=== PATIENT | female | born 1940 | race Caucasian/White ===

== ENCOUNTER 2020-05-09 11:42 | Inpatient (IN) | payer MEDICARE ==
[~2020-05-09] VITALS: Ht 162.6 cm; Wt 80.7 kg
[~2020-05-09 11:42] MED LIST: ALLO300T PO; AMLO2.5T5 PO; FURO20TA3 PO; HYDR-826 PO; LEVO100T PO; METO100T5 PO; PRED-402 PO; SPIR25TA5 PO
[2020-05-09] MEDS ORDERED: MORPHINE SULFATE 4 MG/ML, 1ML IVPush PRN (12:30)
[2020-05-09] MEDS ORDERED: ONDANSETRON 2MG/ML, 2ML IVPush ONE (12:30)
[2020-05-09] MEDS ORDERED: ONDANSETRON 2MG/ML, 2ML ONE (12:42)
[2020-05-09] MEDS ORDERED: MORPHINE SULFATE 4 MG/ML, 1ML ONE (12:43)
[2020-05-09 12:54] LABS: MICROSCOPIC INDICATED
[2020-05-09 12:59] LABS: INTERNATIONAL NORMALIZED RATIO 1.32 (0.93-1.1)
[2020-05-09 13:00] LABS: ALANINE AMINOTRANSFERASE 8 U/L (12-78); ALBUMIN 2.3 g/dL (3.4-5.0); ANION GAP 8 mmol/L (5-15); BASOPHILS % (AUTO) 1 % (0-1); CALCIUM 7.7 mg/dL (8.5-10.1); CHLORIDE 107 mmol/L (98-107); CREATININE 1.63 mg/dL (0.55-1.02); EOSINOPHILS % (AUTO) 2 % (1-7); LYMPHOCYTES % (AUTO) 15 % (22-44); MEAN CORPUSCULAR HEMOGLOBIN 32.7 pg (27.0-34.8); MEAN CORPUSCULAR HGB CONC 33.3 g/dL (32.4-35.8); MEAN PLATELET VOLUME 6.8 fL (7.4-10.4); MONOCYTES % (AUTO) 9 % (2-9); NEUTROPHILS % (AUTO) 73 % (42-75); PLATELET COUNT 188 x10^3/uL (130-400); RED CELL DISTRIBUTION WIDTH 16.7 % (9.6-15.2)
[2020-05-09 13:02] LABS: ALKALINE PHOSPHATASE 72 U/L (45-117); TOTAL PROTEIN 6.7 g/dL (6.4-8.2)
[2020-05-09 13:05] LABS: MD NO
[2020-05-09] MEDS ORDERED: CEFTRIAXONE PMX 1GM/50ML 50 ML ONE (13:25)
[2020-05-09] MEDS ORDERED: FUROSEMIDE 40 MG/4 ML IV ONE (13:30)
[2020-05-09] MEDS ORDERED: LIDOCAINE 1%, 10ML ONE (13:37)
[2020-05-09] MEDS ORDERED: POTASSIUM CHLORIDE 40 MEQ in SODIUM CHLORIDE 0.9% 500 ML IV ONE (14:00)
[2020-05-09] MEDS ORDERED: CEFTRIAXONE PMX 1GM/50ML 50 ML IV ONE ×2 (14:00→15:00)
[2020-05-09] MEDS ORDERED: FUROSEMIDE 40 MG/4 ML ONE (14:57)
[2020-05-09 15:32] VITALS: BP 108/71
[2020-05-09 16:04] VITALS: BP 108/71
[2020-05-09] MEDS ORDERED: DOCUSATE 100 MG CAPSULE PO PRN (16:30)
[2020-05-09] MEDS ORDERED: OXYcodone IR 5MG TABLET PO PRN (16:30)
[2020-05-09] MEDS ORDERED: ONDANSETRON 2MG/ML, 2ML IVPush PRN (16:30)
[2020-05-09] MEDS ORDERED: PROMETHAZINE 25 MG/ML, 1ML IM PRN (16:30)
[2020-05-09] MEDS ORDERED: ONDANSETRON ODT 4 MG PO PRN (16:30)
[2020-05-09] MEDS ORDERED: BISACODYL 10 MG SUPP PR PRN (16:30)
[2020-05-09] MEDS ORDERED: POLYETHYLENE GLYCOL 17 GM PACKET PO PRN (16:30)
[2020-05-09] MEDS ORDERED: LABETALOL 5MG/ML, 20ML IVPush PRN (16:30)
[2020-05-09] MEDS: ALBUMIN HUMAN 25% 100 ML IV SCH ×2 (17:12→22:20)
[2020-05-09] MEDS: HEPARIN 5,000 UNITS/ML, 1ML SQ SCH (17:12)
[2020-05-09 19:47] VITALS: BP 137/81
[2020-05-09 19:54] LABS: FREE T4 (FREE THYROXINE) 0.38 ng/dL (0.76-1.46)
[2020-05-10] MEDS: HEPARIN 5,000 UNITS/ML, 1ML SQ SCH (01:09)
[2020-05-10 02:42] VITALS: BP 143/80
[2020-05-10] MEDS: ALBUMIN HUMAN 25% 100 ML IV SCH ×4 (04:18→22:57)
[2020-05-10 04:49] LABS: BASOPHILS % (AUTO) 1 % (0-1); EOSINOPHILS % (AUTO) 2 % (1-7); LYMPHOCYTES % (AUTO) 21 % (22-44); MEAN CORPUSCULAR HEMOGLOBIN 33.4 pg (27.0-34.8); MEAN CORPUSCULAR HGB CONC 34.1 g/dL (32.4-35.8); MEAN PLATELET VOLUME 6.7 fL (7.4-10.4); MONOCYTES % (AUTO) 9 % (2-9); NEUTROPHILS % (AUTO) 68 % (42-75); PLATELET COUNT 89 x10^3/uL (130-400); RED BLOOD COUNT 2.98 x10^6/uL (3.82-5.3)
[2020-05-10 05:03] LABS: ALBUMIN 2.5 g/dL (3.4-5.0); ANION GAP 5 mmol/L (5-15); CALCIUM 7.4 mg/dL (8.5-10.1); CHLORIDE 110 mmol/L (98-107); CHOLESTEROL, TOTAL 64 mg/dL (140-239)
[2020-05-10 05:05] LABS: ALKALINE PHOSPHATASE 44 U/L (45-117); BILIRUBIN,TOTAL 0.8 mg/dL (0.2-1.0); HDL CHOLESTEROL (DIRECT) 24 mg/dL (40-60); TOTAL PROTEIN 5.2 g/dL (6.4-8.2); TRIGLYCERIDES 45 mg/dL (50-200); VLDL CHOLESTEROL 9 mg/dL (0-25)
[2020-05-10 05:06] LABS: CHOL/HDL RATIO 2.7; HDL CHOL % 38 % (28-40); LDL CHOLESTEROL,CALCULATED 31 mg/dL (54-169); LDL/HDL RATIO 1.3 (0.5-3.0)
[2020-05-10 05:23] LABS: ALANINE AMINOTRANSFERASE < 6 U/L (12-78)
[2020-05-10 05:58] LABS: MD SCAN
[2020-05-10 06:25] VITALS: BP 132/68
[2020-05-10] MEDS ORDERED: LEVOTHYROXINE 100 MCG INJ IVPush SCH (07:30)
[2020-05-10 12:09] VITALS: BP 137/83
[2020-05-10] MEDS: CEFTRIAXONE PMX 2GM/50ML 50 ML IVPB SCH (14:35)
[2020-05-10 19:51] VITALS: BP 122/75
[2020-05-11] MEDS: LEVOTHYROXINE 88 MCG TABLET PO SCH (05:03)
[2020-05-11] MEDS: LIOTHYRONINE 5 MCG TABLET PO SCH (10:37)
[2020-05-11 10:38] VITALS: BP 146/77
[2020-05-11 13:24] VITALS: BP 141/88
[2020-05-11] MEDS: CEFTRIAXONE PMX 2GM/50ML 50 ML IVPB SCH (15:36)
[2020-05-11 19:41] VITALS: BP 129/82
[2020-05-11] MEDS: METRONIDAZOLE VAG 0.75% VG SCH (21:00)
[2020-05-12 00:54] VITALS: BP 144/86
[2020-05-12 05:36] LABS: ANION GAP 6 mmol/L (5-15); CALCIUM 7.8 mg/dL (8.5-10.1); CHLORIDE 109 mmol/L (98-107); CREATININE 1.32 mg/dL (0.55-1.02)
[2020-05-12] MEDS: LEVOTHYROXINE 88 MCG TABLET PO SCH (05:59)
[2020-05-12 06:38] VITALS: BP 157/82
[2020-05-12] MEDS: METRONIDAZOLE VAG 0.75% VG SCH ×2 (09:00→21:00)
[2020-05-12] MEDS: LACTULOSE 10 GM/15 ML UDC PO SCH ×2 (11:23→21:53)
[2020-05-12] MEDS: LIOTHYRONINE 5 MCG TABLET PO SCH (11:23)
[2020-05-12] MEDS: FUROSEMIDE 20 MG TABLET PO SCH (11:23)
[2020-05-12] MEDS: SPIRONOLACTONE 25 MG TABLET PO SCH ×2 (11:23→21:53)
[2020-05-12 18:47] VITALS: BP 154/91
[2020-05-13 01:47] VITALS: BP 124/76
[2020-05-13] MEDS: LEVOTHYROXINE 88 MCG TABLET PO SCH (05:24)
[2020-05-13 05:49] LABS: CHLORIDE 110 mmol/L (98-107)
[2020-05-13 05:54] LABS: ALBUMIN 2.4 g/dL (3.4-5.0); ALKALINE PHOSPHATASE 52 U/L (45-117); ANION GAP 6 mmol/L (5-15); BILIRUBIN,TOTAL 0.4 mg/dL (0.2-1.0); CALCIUM 7.6 mg/dL (8.5-10.1); CREATININE 1.37 mg/dL (0.55-1.02); TOTAL PROTEIN 5.4 g/dL (6.4-8.2)
[2020-05-13 06:04] LABS: ALANINE AMINOTRANSFERASE < 6 U/L (12-78)
[2020-05-13 07:34] VITALS: BP 128/75
[2020-05-13] MEDS: METRONIDAZOLE VAG 0.75% VG SCH ×2 (09:00→21:00)
[2020-05-13] MEDS: LIOTHYRONINE 5 MCG TABLET PO SCH (09:16)
[2020-05-13] MEDS: LACTULOSE 10 GM/15 ML UDC PO SCH ×4 (09:16→22:26)
[2020-05-13] MEDS: SPIRONOLACTONE 25 MG TABLET PO SCH (09:16)
[2020-05-13] MEDS: FUROSEMIDE 20 MG TABLET PO SCH (09:17)
[2020-05-13 12:40] VITALS: BP 142/89
[2020-05-13 19:47] VITALS: BP 156/84
[2020-05-13] MEDS ORDERED: SPIRONOLACTONE 25 MG TABLET PO SCH (21:00)
[2020-05-14] MEDS: LEVOTHYROXINE 88 MCG TABLET PO SCH (05:32)
[2020-05-14 05:51] LABS: ALANINE AMINOTRANSFERASE 9 U/L (12-78); ALBUMIN 2.4 g/dL (3.4-5.0); ANION GAP 5 mmol/L (5-15); CALCIUM 7.5 mg/dL (8.5-10.1); CHLORIDE 110 mmol/L (98-107)
[2020-05-14 05:53] LABS: ALKALINE PHOSPHATASE 50 U/L (45-117); BILIRUBIN,TOTAL 0.4 mg/dL (0.2-1.0); CREATININE 1.35 mg/dL (0.55-1.02); TOTAL PROTEIN 5.3 g/dL (6.4-8.2)
[2020-05-14 06:26] VITALS: BP 142/86
[2020-05-14] MEDS ORDERED: SPIRONOLACTONE 100 MG TABLET PO SCH (09:00)
[2020-05-14] MEDS: METRONIDAZOLE VAG 0.75% VG SCH (09:00)
[2020-05-14] MEDS ORDERED: POTASSIUM CHLORIDE 20 MEQ TAB.ER.PRT PO ONE (09:00)
[2020-05-14] MEDS ORDERED: FUROSEMIDE 40 MG TABLET PO SCH (09:00)
[2020-05-14] MEDS: LIOTHYRONINE 5 MCG TABLET PO SCH (09:14)
[2020-05-14] MEDS: LACTULOSE 10 GM/15 ML UDC PO SCH ×2 (09:16→16:00)
[2020-05-14 12:08] VITALS: BP 145/81
[2020-05-14] MEDS ORDERED: FURO40TA6 PO (14:06)
[2020-05-14] MEDS ORDERED: LACT10SO24 PO (14:06)
[2020-05-14] MEDS ORDERED: SPIR100T PO (14:06)
[2020-05-14] MEDS ORDERED: LIOT5TAB10 PO (14:06)
[2020-05-14] MEDS ORDERED: METR70GE VG (14:06)
[2020-05-14] MEDS ORDERED: CEFD300C37 PO (14:16)
== END 2020-05-14 17:12 | disposition home or self-care (01) | DRG 432 ==
LOC: ED 13:33 → EDIP 14:18 → 3N 15:13
PROVIDERS: ADMIT Hospitalist; ATTEND Internal Medicine
PROC: 0W9G3ZZ Drainage of Peritoneal Cavity, Percutaneous Approach (ICD-10-PCS; principal; 2020-05-09)
DX: K70.31 Alcoholic cirrhosis of liver with ascites (principal); E43 Unspecified severe protein-calorie malnutrition; N17.0 Acute kidney failure with tubular necrosis; N39.0 Urinary tract infection, site not specified; K86.1 Other chronic pancreatitis; E87.6 Hypokalemia; E03.9 Hypothyroidism, unspecified; B96.20 Unspecified Escherichia coli [E. coli] as the cause of diseases classified elsewhere; N18.9 Chronic kidney disease, unspecified; I12.9 Hypertensive chronic kidney disease with stage 1 through stage 4 chronic kidney disease, or unspecified chronic kidney disease; D69.6 Thrombocytopenia, unspecified; Z87.891 Personal history of nicotine dependence; Z91.19 Patient's noncompliance with other medical treatment and regimen; Z98.51 Tubal ligation status
CPT/HCPCS: 36415; 49083; 71045; 74176; 76700; 80048; 80053; 80061; 80307; 81001; 82042; 82140; 83036; 83615; 83690; 83735; 83880; 84439; 84443; 85025; 85610; 85730; 87040; 87070; 87077; 87086; 87186; 87205; 89051; 89055; 93306; 96374; G0378; J0696; J1644; J2405; J3480; P9047; J2270; J7040